=== PATIENT | male | born 1935 | race Caucasian/White ===

== ENCOUNTER 2016-09-03 12:18 | Inpatient (IN) | payer OTHER, MEDICARE ==
--- NOTE | 2016-09-03 12:29 | PDOC ---
History of Present Illness <Allie Humphries - Last Filed: 09/03/16 14:39> - General History Source: Patient, Old Records Exam Limitations: No Limitations - History of Present Illness Initial Comments: 09/03/16 12:31 The patient is an 81-year-old male, with a past medical history of hypertension who presents to the emergency department via for further evaluation of near syncope. 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 He also admits he has not eaten or drank anything all day today, due to his decrease appetite. He denies experiencing chest pain, dizziness, palpitations, visual changes, headaches, nausea prior/post episode. He admits that he has been feeling anxious and stressed lately. He also reports endorsing an intermittent dry cough. No associated symptoms of fevers, chills, shortness of breath, leg pain/swelling. No abdominal pain, diarrhea, urinary complaints. Allergies: No Known Drug Allergies Past Surgical History: Permanent Pacemaker Placement Social History: Smokes cigars. Occasional ETOH and no recreational drug use. Primary Care Physician: Dr. Lowe ([facility]) Transcription Specialist: Dr. Jimenez ([facility]) <Michelle Lopez - Last Filed: 09/03/16 14:41> - General Chief Complaint: Syncope/Near Syncope Stated Complaint: SYNCOPE Time Seen by Provider: 09/03/16 12:28 Past History <Allie Humphries - Last Filed: 09/03/16 14:39> <Michelle Lopez - Last Filed: 09/03/16 14:41> - Past Medical History Allergies/Adverse Reactions: Allergies Allergy/AdvReac Type Severity Reaction Status Date / Time No Known Allergies Allergy Verified 09/03/16 12:30 Home Medications: Ambulatory Orders Lisinopril [Prinivil] 20 mg PO DAILY 09/03/16 Review of Systems - Review of Systems Able to Perform ROS?: Yes Comments:: 09/03/16 12:31 Constitutional - +Weakness. +Decreased appetite. Pt denies Fever, Chills. HEENT: denies vision changes, sore throat Respiratory: +Mild dry cough. Denies sob, hemoptysis Cardiac: +Lightheadedness. denies chest pain, palpitations, leg swelling Abd/GI: denies abd pain, nausea, vomiting, blood per rectum, melena, diarrhea : denies dysuria, frequency, discharge Musculoskeletal - denies back pain, joint swelling skin - denies bruising, erythema, rash neurological: +Weakness. denies headache, numbness, focal weakness, tingling, ataxia. hematologic: denies anemia, easy bruising, easy bleeding <Michelle Lopez - Last Filed: 09/03/16 14:41> *Physical Exam - Vital Signs Last Vital Signs Temp Pulse Resp BP Pulse Ox 0/0 09/03/16 12:21 - Physical Exam Comments: 09/03/16 12:31 GENERAL: The patient is awake, alert, and fully oriented, Nontoxic - in no acute distress. HEAD: Normocephalic, atraumatic. EYES: extraocular movements intact, sclera anicteric, conjunctiva clear. ENT: Normal voice, moist mucous membranes. NECK: Normal range of motion, supple without lymphadenopathy, JVD, or masses. LUNGS: +Coarse rhonchi but no wheezing no crackles. HEART: Regular rate and rhythm, normal S1 and S2 without murmur, rub or gallop. ABDOMEN: Soft, nontender, normoactive bowel sounds. No guarding, no rebound. No masses. EXTREMITIES: Normal range of motion, no edema. No clubbing or cyanosis. No cords , erythema, or tenderness. NEUROLOGICAL: Fully Oriented, Alert, Normal Mood/Affect, Motor Strength 5/5. No facial assymetry, Normal speech SKIN: Warm, Dry, normal turgor, no rashes or lesions noted. <Michelle Lopez - Last Filed: 09/03/16 14:41> Heart Score/ECG Review #1 09/03/16 12:32. Reviewed and interpreted by Dr. Allie Humphries IMPRESSION: Sinus rhythm at 70 bpm. Normal axis. No ischemia. No other EKG obtainable for comparison. <Michelle Lopez - Last Filed: 09/03/16 14:41> ED Treatment Course - LABORATORY CBC & Chemistry Diagram: 09/03/16 12:45 09/03/16 12:45 <Allie Humphries - Last Filed: 09/03/16 14:39> - LABORATORY CBC & Chemistry Diagram: 09/03/16 12:45 09/03/16 12:45 <Michelle Lopez - Last Filed: 09/03/16 14:41> Medical Decision Making - Medical Decision Making 09/03/16 13:35 I, Dr. Allie Humphries, attest that the scribes documentation that appears above has been prepared under my direction and personally reviewed by me. I confirmed that the note above accurately reflects all work, treatment, procedures, and medical decision-making performed by me. 09/03/16 13:36 Pt is feeling better thinks he may have just been over heated while giving mass. Pt's labs noted , pt with hyponatremia, pt also has a creatinine of 3.4. Pt does not give a history of renal problems, will admit to hospitalist service for admission, PT will need Iv fluid, serial troponin and repeat labs. Pt agrees to admission 09/03/16 14:[address] Qureshi hospitalist, who agrees with admission, pt placed in telemetry observation <Allie Humphries - Last Filed: 09/03/16 14:39> *DC/Admit/Observation/Transfer - Discharge Dispostion Admit: Yes <Allie Humphries - Last Filed: 09/03/16 14:39> - Attestations Scribe Attestion: 09/03/16 12:31 Documentation prepared by Michelle Lopez, acting as medical coding specialist for Allie Humphries DO. <Michelle Lopez - Last Filed: 09/03/16 14:41> Diagnosis at time of Disposition: Near syncope, Renal failure, Hyponatremia - Discharge Dispostion Condition at time of disposition: Stable - Referrals
[2016-09-03 12:52] VITALS: BMI 25.9
[2016-09-03 12:55] LABS: BASOPHIL 0.9 % (0-2.0); EOSINOPHIL 1.6 % (0-4.5); MCH 31.6 pg (25.7-33.7); MCHC 33.6 g/dl (32.0-35.9); MEAN CELL VOLUME 94.2 fl (80-96); MEAN PLT VOLUME 7.8 fl (7.5-11.1); NEUTROPHILS 67.6 % (42.8-82.8); PLATELET COUNT 238 K/MM3 (134-434); RDW 14.3 % (11.9-15.9); WHITE BLOOD COUNT 8.1 K/mm3 (4.0-10.0)
[2016-09-03 13:21] LABS: ALBUMIN 3.6 g/dl (3.4-5.0); BILIRUBIN,TOTAL 0.3 mg/dL (0.2-1.0); CALCIUM 8.5 mg/dL (8.5-10.1); COCKROFT - GAULT 20.33; CREATININE 3.4 mg/dL (0.7-1.3); TOT PROT 6.9 g/dl (6.4-8.2)
[2016-09-03 13:22] LABS: INR 1.07 (0.82-1.09); PROTHROMBIN TIME (PATIENT) 11.8 SEC (9.98-11.88)
[2016-09-03 13:26] LABS: TROPONIN I < 0.02 ng/ml (0.00-0.05)
[2016-09-03] MEDS ORDERED: SODIUM CHLORIDE 1,000 ML IV SCH (14:15)
[2016-09-03] MEDS: SODIUM CHLORIDE 1,000 ML IV SCH (15:02)
--- NOTE | 2016-09-03 16:31 | PN ---
Teaching Attending Note Name of Resident: Sherlyn Cordero ATTENDING PHYSICIAN STATEMENT I saw and evaluated the patient. I reviewed the resident's note and discussed the case with the resident. I agree with the resident's findings and plan as documented. SUBJECTIVE: This is an 81-year-old man with a history of HTN, CKD, pacemaker who presents to the ER after he became hot, sweaty, weak and lightheaded while doing mass. He did not eat or drink today. He denies chest pain, palpitations, shortness of breath, nausea, abdominal pain. OBJECTIVE: Vital Signs Period Temp Pulse Resp BP Sys/Au Pulse Ox Last 24 Hr 97.1 F-98.2 F 70-74 14-18 133-164/80-90 96-97 HEART: S1 S2, RRR LUNGS: Clear ABDOMEN: Soft, non-tender, non-distended, normal BS EXTREMITIES: Trace edema ASSESSMENT AND PLAN: This is an 81-year-old man with a history of HTN, CKD, pacemaker who came to the ER with lightheadedness, weakness and sweats while at mass. 1. Probable acute kidney injury secondary to dehydration - IV fluid - Hold Lisinopril - Monitor BUN, creatinine - Renal US 2. Probable chronic kidney disease 3. Hyponatremia, hypovolemic - IV normal saline - Monitor electrolytes 4. Hypertension - Hold Lisinopril secondary to NEAL
--- NOTE | 2016-09-03 16:53 | HP ---
CHIEF COMPLAINT: dizzy; faint PCP: Dr. Lowe at [facility] HISTORY OF PRESENT ILLNESS: 81 year old male with a PMHx of hypertension, s/p pacemaker two weeks ago, who is a optometric aide, was saying mass at [employer], began to feel lightheaded, hot and dizzy , with near faint like symptoms. No LOC. Denies chest pain , sob, fever, chills , changed in bowel or bladder. He does admit to being anxious before each mass and did not eat or drink any thing since the day before. ER course notable for hyponatremia 129; Creatinine of 3. Recent Travel: no PAST MEDICAL HISTORY: HTN; PAST SURGICAL HISTORY: pacemaker Social History: Smoking:no Alcohol:no Drugs: no Family History: Allergies No Known Allergies Allergy (Verified 09/03/16 12:30) HOME MEDICATIONS: Home Medications Medication Instructions Recorded Lisinopril [Prinivil] 20 mg PO DAILY 09/03/16 REVIEW OF SYSTEMS CONSTITUTIONAL: Positive: dizziness, diaphoresis Absent: fever, chills, diaphoresis, generalized weakness, malaise, loss of appetite, weight change HEENT: Absent: rhinorrhea, nasal congestion, throat pain, throat swelling, difficulty swallowing, mouth swelling, ear pain, eye pain, visual changes CARDIOVASCULAR: Positive:lightheadedness Absent: chest pain, syncope, palpitations, irregular heart rate, , peripheral edema RESPIRATORY: Absent: cough, shortness of breath, dyspnea with exertion, orthopnea, wheezing, stridor, hemoptysis GASTROINTESTINAL: Absent: abdominal pain, abdominal distension, nausea, vomiting, diarrhea, constipation, melena, hematochezia GENITOURINARY: Absent: dysuria, frequency, urgency, hesitancy, hematuria, flank pain, genital pain MUSCULOSKELETAL: Absent: myalgia, arthralgia, joint swelling, back pain, neck pain SKIN: Absent: rash, itching, pallor HEMATOLOGIC/IMMUNOLOGIC: Absent: easy bleeding, easy bruising, lymphadenopathy, frequent infections ENDOCRINE: Absent: unexplained weight gain, unexplained weight loss, heat intolerance, cold intolerance NEUROLOGIC: Absent: headache, focal weakness or paresthesias, dizziness, unsteady gait, seizure, mental status changes, bladder or bowel incontinence PSYCHIATRIC: Positive:anxiety Absent:depression, suicidal or homicidal ideation, hallucinations. PHYSICAL EXAMINATION Vital Signs - 24 hr 09/03/16 16:16 Temperature 98.2 F Pulse Rate 74 Respiratory 14 Rate Blood Pressure 164/90 O2 Sat by Pulse 96 Oximetry (%) GENERAL: Awake, alert, and fully oriented, in no acute distress. HEAD: Normal with no signs of trauma. EYES: Pupils equal, round and reactive to light, extraocular movements intact, sclera anicteric, conjunctiva clear. No lid lag. EARS, NOSE, THROAT: Ears normal, nares patent, oropharynx clear without exudates. Moist mucous membranes. NECK: Normal range of motion, supple without lymphadenopathy, JVD, or masses. LUNGS: Breath sounds equal, clear to auscultation bilaterally. No wheezes, and no crackles. No accessory muscle use. HEART: Regular rate and rhythm, normal S1 and S2 without murmur, rub or gallop. ABDOMEN: Soft, nontender, not distended, normoactive bowel sounds, no guarding, no rebound, no masses. No hepatomegaly or splenomegaly. MUSCULOSKELETAL: Normal range of motion at all joints. No bony deformities or tenderness. No CVA tenderness. UPPER EXTREMITIES: 2+ pulses, warm, well-perfused. No cyanosis. No clubbing. No peripheral edema. LOWER EXTREMITIES: 2+ pulses, warm, well-perfused. No calf tenderness. No peripheral edema. NEUROLOGICAL: Cranial nerves II-XII intact. Normal speech. Normal gait. PSYCHIATRIC: anxious SKIN: Warm, dry, normal turgor, no rashes or lesions noted, normal capillary refill. ASSESSMENT/PLAN: 81 year old male with a past medical history of hypertension and recent pacemaker two weeks ago, presents to ER with pre-syncopal episode while serving [employer] at [employer]. Admitted under observation for acute kidney injury. #Acute kidney injury on chronic? 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 - New Patient This patient is new to me today: Yes Date on this admission: 09/06/16 - Critical Care Critical Care patient: No
[2016-09-03 18:49] LABS: URINE APPEARANCE CLEAR; URINE BILIRUBIN NEGATIVE (NEGATIVE); URINE BLOOD NEGATIVE (NEGATIVE); URINE COLOR STRAW; URINE GLUCOSE (UA) NEGATIVE (NEGATIVE); URINE KETONE NEGATIVE (NEGATIVE); URINE LEUK ESTERASE NEGATIVE (NEGATIVE); URINE NITRITE NEGATIVE (NEGATIVE); URINE PROTEIN NEGATIVE (NEGATIVE); URINE UROBILINOGEN NEGATIVE E.U./dl (0.2-1.0)
[2016-09-03] MEDS ORDERED: MAG HYDROX/AL HYDROX/SIMETH 30 ML UNIT-DOSE CUP PO PRN (23:18)
[2016-09-03] MEDS ORDERED: PT OWN MED DRAWER 7, Y5N ONE (23:23)
[2016-09-04] MEDS: HEPARIN NA (PORCINE) 5,000 UNITS/ML 1ML VIAL SQ SCH ×3 (02:13→17:00)
[2016-09-04] MEDS: SODIUM CHLORIDE 1,000 ML IV SCH ×2 (06:14→15:24)
[2016-09-04 08:33] LABS: BASOPHIL 0.8 % (0-2.0); EOSINOPHIL 5.3 % (0-4.5); MCHC 33.9 g/dl (32.0-35.9); MEAN CELL VOLUME 94.4 fl (80-96); MEAN PLT VOLUME 8.3 fl (7.5-11.1); NEUTROPHILS 62.5 % (42.8-82.8); PLATELET COUNT 228 K/MM3 (134-434); RDW 14.1 % (11.9-15.9); WHITE BLOOD COUNT 8.8 K/mm3 (4.0-10.0)
[2016-09-04 09:02] LABS: COCKROFT - GAULT 27.65; CREATININE 2.5 mg/dL (0.7-1.3); MAGNESIUM 2.2 mg/dL (1.8-2.4)
--- NOTE | 2016-09-04 14:54 | PN ---
Physical Exam: SUBJECTIVE: Patient seen and examined. He is feeling better. OBJECTIVE: Vital Signs Period Temp Pulse Resp BP Sys/Au Pulse Ox Last 24 Hr 97.6 F-98.2 F 69-82 14-20 130-164/66-97 96-99 GENERAL: The patient is awake, alert, and fully oriented, in no acute distress. LUNGS: Breath sounds equal, clear to auscultation bilaterally, no wheezes, no crackles, no accessory muscle use. HEART: Regular rate and rhythm, S1, S2 without murmur, rub or gallop. ABDOMEN: Soft, nontender, nondistended, normoactive bowel sounds, no guarding, no rebound, no hepatosplenomegaly, no masses. EXTREMITIES: 2+ pulses, warm, well-perfused, no edema. Laboratory Results - last 24 hr 09/03/16 09/03/16 09/03/16 16: 16:30 16:30 WBC RBC Hgb Hct MCV MCHC RDW Plt Count MPV Neutrophils % Lymphocytes % Monocytes % Eosinophils % Basophils % Sodium Potassium Chloride Carbon Dioxide Anion Gap BUN Creatinine Random Glucose Serum Osmolality 288 Calcium Phosphorus Magnesium Urine Color Straw Urine Appearance Clear Urine pH 6.0 Ur Specific [place] 1.006 Urine Protein Negative Urine Glucose (UA) Negative Urine Ketones Negative Urine Blood Negative Urine Nitrite Negative Urine Bilirubin Negative Urine Urobilinogen Negative Ur Leukocyte Esterase Negative Ur Random Sodium 44 Ur Random Potassium 19.1 Ur Random Chloride 42 Ur Random Urea Nitrogn Urine Creatinine 09/03/16 09/03/16 09/04/16 16:30 16:30 06:00 WBC 8.8 RBC 3.90 L Hgb 12.5 Hct 36.8 MCV 94.4 MCHC 33.9 RDW 14.1 Plt Count 228 MPV 8.3 Neutrophils % 62.5 Lymphocytes % 23.6 Monocytes % 7.8 Eosinophils % 5.3 H D Basophils % 0.8 Sodium Potassium Chloride Carbon Dioxide Anion Gap BUN Creatinine Random Glucose Serum Osmolality Calcium Phosphorus Magnesium Urine Color Urine Appearance Urine pH Ur Specific [place] Urine Protein Urine Glucose (UA) Urine Ketones Urine Blood Urine Nitrite Urine Bilirubin Urine Urobilinogen Ur Leukocyte Esterase Ur Random Sodium Ur Random Potassium Ur Random Chloride Ur Random Urea Nitrogn 298 Urine Creatinine 51.0 09/04/16 06:00 WBC RBC Hgb Hct MCV MCHC RDW Plt Count MPV Neutrophils % Lymphocytes % Monocytes % Eosinophils % Basophils % Sodium 135 L Potassium 4.9 Chloride 100 Carbon Dioxide 23 Anion Gap 12 BUN 41 H Creatinine 2.5 H D Random Glucose 88 D Serum Osmolality Calcium 9.0 Phosphorus 3.0 Magnesium 2.2 Urine Color Urine Appearance Urine pH Ur Specific [place] Urine Protein Urine Glucose (UA) Urine Ketones Urine Blood Urine Nitrite Urine Bilirubin Urine Urobilinogen Ur Leukocyte Esterase Ur Random Sodium Ur Random Potassium Ur Random Chloride Ur Random Urea Nitrogn Urine Creatinine Active Medications Generic Name Dose Route Start Last Admin Trade Name Freq PRN Reason Stop Dose Admin Al Hydroxide/Mg Hydroxide 30 ml 09/03/16 23:18 09/03/16 23:35 Mylanta Oral Suspension - PO 30 ml Q6H PRN Administration DYSPEPSIA Heparin Sodium (Porcine) 5,000 unit 09/04/16 02:00 09/04/16 09:52 Heparin - SQ 5,000 unit Q8H-IV YISEL Administration Sodium Chloride 1,000 mls @ 83 mls/hr 09/03/16 15:00 09/04/16 06:14 Normal Saline - IV 83 mls/hr ASDIR YISEL Administration ASSESSMENT/PLAN: This is an 81-year-old man with a history of HTN, CKD, pacemaker who came to the ER with lightheadedness, weakness and sweats while at mass. 1. Acute kidney injury secondary to dehydration, bladder outlet obstruction - Improving with IV fluid and Lynne catheter - Lisinopril held - Continue to monitor BUN, creatinine - Renal US shows medical renal disease of right kidney, urinary bladder volume 1445 cc with PVR 580 cc 2. 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 Probable chronic kidney disease 4. Hyponatremia, hypovolemic - Improving with IV normal saline - Continue to monitor electrolytes 5. Hypertension - Lisinopril held secondary to NEAL Visit type - Emergency Visit Emergency Visit: Yes ED Registration Date: 09/03/16 Care time: The patient presented to the Emergency Department on the above date and was hospitalized for further evaluation of their emergent condition. - New Patient This patient is new to me today: No - Critical Care Critical Care patient: No - Discharge Referral Referred to [facility] No
[2016-09-04 15:16] LABS: ANION GAP 9 (8-16); CALCIUM 8.4 mg/dL (8.5-10.1); CO2 24 mmol/L (21-32); GLUCOSE,RANDOM 103 mg/dL (74-106)
[2016-09-04 15:21] LABS: COCKROFT - GAULT 27.65; CREATININE 2.5 mg/dL (0.7-1.3)
[2016-09-04 15:23] LABS: TROPONIN I < 0.02 ng/ml (0.00-0.05)
[2016-09-04] MEDS: TAMSULOSIN HCL 0.4 MG CAP.ER.24H (FP) PO SCH (16:57)
--- NOTE | 2016-09-05 00:10 | EKG ---
Test Reason : Blood Pressure : / mmHG Vent. Rate : 070 BPM Atrial Rate : 070 BPM P-R Int : 170 ms QRS Dur : 152 ms QT Int : 458 ms P-R-T Axes : 008 015 056 degrees QTc Int : 494 ms Atrial-sensed ventricular-paced rhythm ABNORMAL ECG NO PREVIOUS ECGS AVAILABLE Confirmed by NIKKI MENDOZA MD ([id number]) on 09/05/2016 12:10:28 AM Referred By: Confirmed By:NIKKI MENDOZA MD
[2016-09-05] MEDS: HEPARIN NA (PORCINE) 5,000 UNITS/ML 1ML VIAL SQ SCH ×3 (02:45→17:37)
[2016-09-05 08:00] LABS: CALCIUM 8.5 mg/dL (8.5-10.1)
[2016-09-05 08:03] LABS: COCKROFT - GAULT 31.42; CREATININE 2.2 mg/dL (0.7-1.3)
[2016-09-05] MEDS: TAMSULOSIN HCL 0.4 MG CAP.ER.24H (FP) PO SCH (09:42)
--- NOTE | 2016-09-05 15:30 | PN ---
Physical Exam: SUBJECTIVE: Patient seen and examined no new complaints; with dickson ; O/U 3L yesterday; denies fever, chills, SALCEDO, dizziness, nausea, palpitations. OBJECTIVE: Vital Signs Period Temp Pulse Resp BP Sys/Au Pulse Ox Last 24 Hr 97.7 F-98.7 F 72-80 18-20 121-144/69-91 99-99 GENERAL: The patient is awake, alert, and fully oriented, in no acute distress. HEAD: Normal with no signs of trauma. LUNGS: Breath sounds equal, clear to auscultation bilaterally, no wheezes, no crackles, no accessory muscle use. HEART: Regular rate and rhythm, S1, S2 without murmur, rub or gallop. ABDOMEN: Soft, nontender, nondistended, normoactive bowel sounds, no guarding, no rebound, no hepatosplenomegaly, no masses. EXTREMITIES: 2+ pulses, warm, well-perfused, no edema. NEUROLOGICAL: Cranial nerves II through XII grossly intact. Normal speech, gait not observed. PSYCH: Normal mood, normal affect. SKIN: Warm, dry, normal turgor, no rashes or lesions noted Laboratory Results - last 24 hr 09/04/16 09/05/16 14:25 05:35 Sodium 137 Potassium 4.9 Chloride 103 Carbon Dioxide 24 Anion Gap 10 BUN 45 H Creatinine 2.2 H Random Glucose 88 Calcium 8.5 Troponin I < 0.02 Active Medications Generic Name Dose Route Start Last Admin Trade Name Freq PRN Reason Stop Dose Admin Al Hydroxide/Mg Hydroxide 30 ml 09/03/16 23:18 09/03/16 23:35 Mylanta Oral Suspension - PO 30 ml Q6H PRN Administration DYSPEPSIA Heparin Sodium (Porcine) 5,000 unit 09/04/16 02:00 09/05/16 09:42 Heparin - SQ 5,000 unit Q8H-IV YISEL Administration Sodium Chloride 1,000 mls @ 83 mls/hr 09/03/16 15:00 09/04/16 15:24 Normal Saline - IV Not Given ASDIR YISEL Tamsulosin HCl 0.4 mg 09/04/16 14:54 09/05/16 09:42 Flomax - PO 0.4 mg DAILY@0830 YISEL Administration ASSESSMENT/PLAN: 81 year old male with a past medical history of hypertension and recent pacemaker two weeks ago, presents to ER with pre-syncopal episode 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 Admitted for acute kidney injury. #Acute kidney injury on chronic: improved -BUN/Cr 44/3.4 -IVF gentle hydration -Urine studies -US/ renal/bladder -hold noy-I/ avoid nephrotoxic drugs #Hyponatremia : improved #Hypertension: currently normotensive -hold lisinopril FEN: Fluids:NS 83mls Electrolytes: wnl Diet: regular VTE prophylaxis: heparin sq Disposition: d/c dickson 6 am; monitor urine output; f/u with Dr. Bryan as outpatient Visit type - Emergency Visit Emergency Visit: Yes ED Registration Date: 09/03/16 Care time: The patient presented to the Emergency Department on the above date and was hospitalized for further evaluation of their emergent condition. - New Patient This patient is new to me today: No - Critical Care Critical Care patient: No
[2016-09-05] MEDS: SODIUM CHLORIDE 1,000 ML IV SCH (15:38)
--- NOTE | 2016-09-05 19:46 | PN ---
Teaching Attending Note Name of Resident: Sherlyn Cordero ATTENDING PHYSICIAN STATEMENT I saw and evaluated the patient. I reviewed the resident's note and discussed the case with the resident. I agree with the resident's findings and plan as documented. SUBJECTIVE: No complaints. OBJECTIVE: Vital Signs Period Temp Pulse Resp BP Sys/Au Pulse Ox Last 24 Hr 97.8 F-99 F 73-86 18-20 121-139/69-78 99-99 HEART: S1S2, RRR LUNGS: Clear ABDOMEN: Soft, non-tender, non-distended, normal BS EXTREMITIES: No edema ASSESSMENT AND PLAN: This is an 81-year-old man with a history of HTN, CKD, pacemaker who came to the ER with lightheadedness, weakness and sweats while at mass. 1. Acute kidney injury secondary to dehydration, bladder outlet obstruction - Improving with IV fluid and Lynne catheter - Lisinopril held - Continue to monitor BUN, creatinine - Renal US shows medical renal disease of right kidney, urinary bladder volume 1445 cc with PVR 580 cc 2. 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 Probable chronic kidney disease, stage 3 vs stage 4 - Continue to monitor creatinine 4. Hyponatremia, hypovolemic - Improved 5. Hypertension - Lisinopril held secondary to NEAL
[2016-09-06] MEDS: HEPARIN NA (PORCINE) 5,000 UNITS/ML 1ML VIAL SQ SCH ×2 (01:23→09:29)
[2016-09-06 07:50] LABS: CALCIUM 9.2 mg/dL (8.5-10.1); COCKROFT - GAULT 31.42; CREATININE 2.2 mg/dL (0.7-1.3)
[2016-09-06] MEDS: TAMSULOSIN HCL 0.4 MG CAP.ER.24H (FP) PO SCH (09:29)
[2016-09-06 10:15] VITALS: BP 126/70; PULSE 80; TEMP 98
--- NOTE | 2016-09-06 12:49 | PN ---
Teaching Attending Note Name of Resident: Sherlyn Cordero ATTENDING PHYSICIAN STATEMENT I saw and evaluated the patient. I reviewed the resident's note and discussed the case with the resident. I agree with the resident's findings and plan as documented. SUBJECTIVE:asymptomatic OBJECTIVE: Last Vital Signs Temp Pulse Resp BP Pulse Ox 98 F 80 18 126/70 98 09/06/16 10:00 09/06/16 10:00 09/06/16 10:00 09/06/16 10:00 09/06/16 09:00 general NAD CV s1 s2 + ASSESSMENT AND PLAN: 81yo M with PMH HTN, CKD, and PPM presented to the ER and was admitted for further evaluation 1. Acute on CKD- hydrated in the ER. now improved. no repeated episodes of dizzyness. lisinopril held and BP controlled. will have pt follow up with PMD for it being re-started at lower dose by PMD. informed pt he should see PMD at the end of the week for repeat kidney function 2. Urinary retention-due to BPH. voided this AM. follow up with urology in 2 weeks 3. Hyponatremia- resolved 4. HTN- controlled off acei. 5. d/c home today
--- NOTE | 2016-09-06 14:17 | DS ---
Physical Exam: SUBJECTIVE: Patient seen and examined, randolph d/vanda'thad early this am. Patient able to void. Denies chest pain, palpitations, n,v, lightheadedness. OBJECTIVE: Vital Signs Period Temp Pulse Resp BP Sys/Au Pulse Ox Last 24 Hr 96.5 F-99 F 68-86 18-20 126-139/59-77 98-99 PHYSICAL EXAM GENERAL: The patient is awake, alert, and fully oriented, in no acute distress. HEAD: Normal with no signs of trauma. EYES: PERRL, extraocular movements intact, sclera anicteric, conjunctiva clear. ENT: Ears normal, nares patent, oropharynx clear without exudates, moist mucous membranes. NECK: Trachea midline, full range of motion, supple. LUNGS: Breath sounds equal, clear to auscultation bilaterally, no wheezes, no crackles, no accessory muscle use. HEART: Regular rate and rhythm, S1, S2 without systolc II/ murmur, rub or gallop. ABDOMEN: Soft, nontender, nondistended, normoactive bowel sounds, no guarding, no rebound, no hepatosplenomegaly, no masses. EXTREMITIES: 2+ pulses, warm, well-perfused, no edema. NEUROLOGICAL: Cranial nerves II through XII grossly intact. Normal speech, gait not observed. PSYCH: Normal mood, normal affect. SKIN: Warm, dry, normal turgor, no rashes or lesions noted. LABS Laboratory Results - last 24 hr 09/06/16 05:35 Sodium 136 Potassium 4.7 Chloride 102 Carbon Dioxide 23 Anion Gap 11 BUN 44 H Creatinine 2.2 H Random Glucose 90 Calcium 9.2 Renal US Impression: No hydronephrosis is seen. Right renal atrophy is noted with associated altered cortical echogenicity consistent with medical renal disease. A large post void residual urinary volume of 580 mL is seen. The prevoid volume was also quite large measuring 1445 mL. HOSPITAL COURSE: Date of Admission:09/03/16 Date of Discharge: 09/06/16 This is an 81 year old male with a past medical history of hypertension and recent pacemaker two weeks ago, presents to ER with pre-syncopal episode while serving [employer] at [employer]. Admitted for acute kidney injury, hyponatremia and dehydration. Acute kidney injury on chronic, improved with gentle hydration. BUN/Cr 44/ 3.4 on admission, decreased to 2.2 upon discharge. Nephrotoxic drugs held. Started on flomax. US/ renal/bladder impression detail above. Instructed to discuss with primary when to restart lisinopril. Instructed to follow up with urology for further evaluation of prostate. Hyponatremia improved with hydration. Minutes to complete discharge: 35 Discharge Summary Reason For Visit: PRE SYNCOPE Condition: Improved - Instructions Diet, Activity, Other Instructions: Mr. Mendoza, you have been treated for dehydration, electrolyte imbalances, and acute kidney injury. Please follow a healthy diet and lifestyle, remember not to skips meals and continue to drink about 10-12 glasses of water per day ( this is calculated by your weight). Please follow up with your primary doctor regarding your kidney functioning, which has improved while in hospital, also for pacemaker interrogation. You will need to have your kidney function checked. also discuss with him about re- starting your lisinopril You have been provided information of a urologist for further evaluation as well. Please make an appointment with in one to two weeks. If you experience any worsening of symptoms including dizziness, lightheadedness , chest pain, shortness of breath, loss of consciousness, please return to the emergency room. Referrals: Danie Rodriguez MD [Staff Physician] - Jr Lowe MD [Primary Care Provider] - Disposition: HOME - Home Medications Comprehensive Discharge Medication List: Ambulatory Orders Tamsulosin HCl [Flomax -] 0.4 mg PO DAILY@0830 #30 cap 09/06/16 This patient is new to me today: No Emergency Visit: Yes ED Registration Date: 09/03/16 Care time: The patient presented to the Emergency Department on the above date and was hospitalized for further evaluation of their emergent condition. Critical Care patient: No - Discharge Referral Referred to [facility] No
== END 2016-09-06 13:23 | disposition home or self-care (01) | DRG 683 ==
LOC: JER 12:18 → JERBED 13:54 → OBSVTOIN 13:54 → JERBED 14:06 → UNDOADMOB 14:06 → JERBED 16:02 → J4W 16:02
PROVIDERS: ADMIT Internal Medicine; ATTEND Internal Medicine
DX: N17.9 Acute kidney failure, unspecified (principal); E87.1 Hypo-osmolality and hyponatremia; E86.0 Dehydration; I12.9 Hypertensive chronic kidney disease with stage 1 through stage 4 chronic kidney disease, or unspecified chronic kidney disease; N18.9 Chronic kidney disease, unspecified; R33.9 Retention of urine, unspecified; N40.1 Benign prostatic hyperplasia with lower urinary tract symptoms; R33.8 Other retention of urine; R55 Syncope and collapse; N32.0 Bladder-neck obstruction; Z95.0 Presence of cardiac pacemaker
CPT/HCPCS: 36415; 71010-TC; 76775-TC; 76856-TC; 80048; 80053; 81003; 82436; 82550; 82553; 82570; 83735; 83930; 84100; 84133; 84300; 84484; 84540; 85025; 85610; 93005; 93010; 97116-GP; 97161-GP; 99285-25; J1644